=== PATIENT | female | born 1980 | race Caucasian/White ===

== ENCOUNTER → 2019-07-09 13:42 | Outpatient (BNVA) | payer OTHER, SELFPAY | PROVIDERS: Family Provider Nurse Practitioner Family; PCP Nurse Practitioner Family; Referring Provider Family Medicine; Visit Provider Family Medicine | DX: J11.1 Influenza due to unidentified influenza virus with other respiratory manifestations (principal); J32.0 Chronic maxillary sinusitis; J01.00 Acute maxillary sinusitis, unspecified | CPT/HCPCS: 87804 ==

== ENCOUNTER → 2019-11-25 18:27 | Outpatient (BNVA) | payer OTHER, SELFPAY | PROVIDERS: Family Provider Nurse Practitioner Family; PCP Nurse Practitioner Family; Visit Provider Nurse Practitioner | DX: J02.9 Acute pharyngitis, unspecified (principal); J01.90 Acute sinusitis, unspecified | CPT/HCPCS: 87071; 87880 ==

== ENCOUNTER → 2020-03-16 11:31 | Outpatient (BNVA) | payer OTHER, SELFPAY | PROVIDERS: Family Provider Nurse Practitioner Family; PCP Nurse Practitioner Family; Visit Provider Nurse Practitioner Family | DX: Z11.59 Encounter for screening for other viral diseases (principal); J06.9 Acute upper respiratory infection, unspecified | CPT/HCPCS: 87635 ==

== ENCOUNTER 2022-04-05 07:41 | Outpatient (CLI) | payer SELFPAY ==
[2022-04-05] VITALS (18 sets, daily range): BP systolic 105–131; BP diastolic 61–78; PULSE 70–91; RESP 15–18; TEMP 36.5–37.2; O2SAT 100; BMI 26.4
--- NOTE | 2022-04-05 08:09 | XR_ITS ---
WS: [id number] Cervical spine, 3 views, 04/05/2022 Clinical Data: L arm radicular symptoms Comparison: None. Findings: No compression fractures are seen. The disc heights are normal. There is no prevertebral so ft tissue swelling. The odontoid is unremarkable. The soft tissues of the neck and the lung apices ar e normal. XR/XR cervical spine 3V* 01418 Impression: Negative cervical spine.
--- NOTE | 2022-04-05 08:13 | CT_ITS ---
WS: [id number] CT HEAD NONCONTRAST HISTORY: L sided weakness/numbness TECHNIQUE: Contiguous axial imaging performed through the brain in 2.5 mm imaging. Bone and soft tiss ue windows. Sagittal and coronal reformats reviewed. All CT scans at [facility] use at least one of these dose optimization techniques: automated exposure control; mA and/or kV adjustment per pa tient size (includes targeted exams where dose is matched to clinical indication); or iterative recon struction. DLP: 1061.53 mGy.cm COMPARISON: 12/05/2010 No acute intracranial hemorrhage, midline shift or mass effect. No atrophy or prior infarcts or herniation. Ventricles: Normal size with no hydrocephalus. Low-lying cerebellar tonsils. No Chiari malformation. Fourth ventricle is normal size. No hydrocephal us. Paranasal sinuses: As visualized are clear. Mastoid air cells: Well pneumatized. Calvarium and scalp: Skull is intact with no soft tissue edema or swelling. CT/CT head wo con* [id number] IMPRESSION: 1. No acute intracranial hemorrhage, midline shift or mass effect. 2. No hydrocephalus. 3. Low-lying cerebellar tonsils. No Chiari malformation.
[2022-04-05 08:21] LABS: Basophils # 0.1 10^3/uL (0.0-0.1); Basophils % 1.2 %; Eosinophils # 0.4 10^3/uL (0.0-0.8); Eosinophils % 6.3 %; Hematocrit 26.4 % (37.0-47.0); Hemoglobin 6.9 g/dL (11.5-15.3); Lymphocytes # 1.7 10^3/uL (0.8-4.8); Lymphocytes % 29.1 %; Mean Corpuscular HGB Conc 26.1 g/dL (30.0-36.0); Mean Corpuscular Volume 65.2 fl (81-99); Mean Platelet Volume 9.2 fL (7.4-10.4); Monocytes # 0.5 10^3/uL (0.2-0.9); Monocytes % 8.2 %; Neutrophils # 3.16 10^3/uL (1.8-7.7); Nucleated Red Blood Cells % 0 %; Platelet Count 667 10^3/cmm (130-400); Red Blood Count 4.05 10^6/uL (4.1-5.3); Red Cell Distribution Width 19.6 % (12.1-15.1); White Blood Count 5.7 10^3/uL (4.0-10.0)
--- NOTE | 2022-04-05 08:25 | ECG_ITS ---
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 Measurements Intervals Loman Rate: 85 P: 62 SC: 148 QRS: 71 QRSD: 84 T: 62 QT: 369 QTc: 439 Interpretive Statements SINUS RHYTHM No previous ECG available for comparison Electronically Signed On 04-06-2022 11:38:30 SECURITY ARCHITECT by Jennifer Kumar M.D. [id number]
--- NOTE | 2022-04-05 08:34 | ED_ITS ---
HPI - Neuro Symptoms/Deficit General: Chief Complaint: Neuro Symptoms/Deficit Stated Complaint: stroke like Symtoms Time Seen by Provider: 04/05/22 07:45 Source: patient Mode of arrival: ambulatory History of Present Illness: 41-year-old female presents emergency room with complaints of left-sided weakness and numbness she had an episode yesterday then it resolved spontaneously after an hour or so she went to bed last night around 9 or 10:00 woke up this morning and had similar symptoms again on the left side these are persisting she has no difficulty with gait swallowing speech or vision. Her NIH score is 1. Associated symptoms: Deny chest pain, malaise, nausea or vomiting Review of Systems Const: Denies: fever(s), chills, body aches, change in appetite, fatigue or malaise ENMT: Denies: throat pain, ear or mastoid pain, nasal discharge or nasal congestion Card: Denies: chest pain, palpitations, irregular heart rhythm, edema, dyspnea on exertion or orthopnea Resp: Denies: dyspnea, productive cough or non-productive cough GI: Denies: abdominal pain, nausea, vomiting, hematemesis, coffee ground emesis, diarrhea, constipation, bloating, hematochezia or melena : Denies: flank pain, difficulty voiding, dysuria, urinary frequency or urinary urgency Skin/Breast: Denies: rash or pruritus [facility] ED PFSH: Medical History (Updated 04/05/22 @ 13:04 by Crow Perdomo DO) No significant past medical history Surgical History (Updated 04/05/22 @ 08:39 by Crow Perdomo DO) No pertinent past surgical history Social History Smoking and tobacco status: current every day smoker Alcohol intake: never Female Reproductive History: Date of last menstrual period: 04/02/22 NIH stroke score NIHSS: Level Of Consciousness - 1a: 0 Level Of Consciousness Questions - 1b: Both Correct Level Of Consciousness Commands - 1c: Both Correct Best Gaze - 2: Normal Visual Goddard - 3: No Visual Loss Facial Palsy - 4: Normal Motor Arm Right - 5: No Drift Motor Arm Left - 5: No Drift Motor Leg Right - 6: No Drift Motor Leg Left - 6: No Drift Limb Ataxia - 7: Absent Sensory - 8: Mild To Moderate Loss Best Language - 9: No Aphasia Dysarthia - 10: Normal Extinction And Inattention - 11: 0 Score: Total Score: 1 Physical Exam Const: GENERAL APPEARANCE: cooperative and comfortable ORIENTATION/CONSCIOUSNESS: Yes awake, Yes oriented to person, Yes oriented to place and Yes oriented to time HENMT: COMMON NORMALS: normocephalic, atraumatic and hearing grossly normal bilaterally HEAD & SCALP: normocephalic and atraumatic Resp: COMMON NORMALS: normal respiratory effort, No retractions, No use of accessory muscles and clear to auscultation bilaterally AUSCULTATION: clear to auscultation bilaterally Cardio: COMMON NORMALS: regular rate, regular rhythm and No murmurs present (Cardio) RATE: regular rate RHYTHM: regular rhythm GI: COMMON NORMALS: Soft to palpation and No hepatosplenomegaly present AUSCULTATION: Yes normoactive bowel sounds PALPATION: Yes Soft to palpation, No Tenderness to palpation present (GI), No Guarding due to palpation present (GI) and Yes No hepatosplenomegaly present Extremity: COMMON NORMALS: normal to inspection, capillary refill normal, no clubbing, cyanosis or edema, no calf tenderness and no pedal edema Neuro: SENSORIUM/ORIENTATION: Yes oriented to person, Yes oriented to place and Yes oriented to time Skin: COMMON NORMALS: no rashes or lesions noted GENERAL SKIN EXAM: no rashes or lesions noted Course Vital Signs: Vital signs: Vital Signs Temperature 97.7 F 04/05/22 07:51 Pulse Rate 79 04/05/22 11:57 Respiratory Rate 15 04/05/22 08:21 Blood Pressure 115/69 04/05/22 11:57 Pulse Oximetry 100 04/05/22 11:57 Oxygen Delivery Me thod 04/05/22 11:57 MDM - Neuro Symptoms/Deficit Medical Decision Making No focal neurologic deficits suggestive of acute CVA. I think she is symptomatic from her severe anemia. This is been a chronic thing for her her MCV is extremely low at 65. We will place an outpatient in a bed transfused 2 units and make arrangements for her to follow-up with gynecology. She has been having menorrhagia for some time may need to have further evaluation and possible intervention. Medical Records I reviewed the patient's medical records. Lab Data I reviewed the patient's lab results. : 04/05/22 08:15 04/05/22 08:15 Radiology Impressions Cervical Spine X-Ray 04/05/22 08:09 Impression: Negative cervical spine. Head CT 04/05/22 08:13 IMPRESSION: 1. No acute intracranial hemorrhage, midline shift or mass effect. 2. No hydrocephalus. 3. Low-lying cerebellar tonsils. No Chiari malformation. Laboratory Results WBC 5.7 10^3/uL (4.0-10.0) 04/05/22 08:15 RBC 4.05 10^6/uL (4.1-5.3) L 04/05/22 08:15 Hgb 6.9 g/dL (11.5-15.3) L 04/05/22 08:15 Hct 26.4 % (37.0-47.0) L 04/05/22 08:15 MCV 65.2 fl (81-99) L 04/05/22 08:15 MCH 17.0 pg (28.0-34.0) L 04/05/22 08:15 MCHC 26.1 g/dL (30.0-36.0) L 04/05/22 08:15 RDW 19.6 % (12.1-15.1) H 04/05/22 08:15 Plt Count 667 10^3/cmm (130-400) H 04/05/22 08:15 MPV 9.2 fL (7.4-10.4) 04/05/22 08:15 Neut % (Auto) 55.0 % 04/05/22 08:15 Lymph % (Auto) 29.1 % 04/05/22 08:15 [place] % (Auto) 8.2 % 04/05/22 08:15 Eos % (Auto) 6.3 % 04/05/22 08:15 Baso % (Auto) 1.2 % 04/05/22 08:15 Neut # (Auto) 3.16 10^3/uL (1.8-7.7) 04/05/22 08:15 Lymph # (Auto) 1.7 10^3/uL (0.8-4.8) 04/05/22 08:15 [place] # (Auto) 0.5 10^3/uL (0.2-0.9) 04/05/22 08:15 Eos # (Auto) 0.4 10^3/uL (0.0-0.8) 04/05/22 08:15 Baso # (Auto) 0.1 10^3/uL (0.0-0.1) 04/05/22 08:15 Nucleated RBC % (auto) 0 % 04/05/22 08:15 Nucleated RBCs # 0.0 /100WBC 04/05/22 08:15 Sodium 140 mmol/L (136-145) 04/05/22 08:15 Potassium 3.9 mmol/L (3.5-5.1) 04/05/22 08:15 Chloride 105 mmol/L (98-107) 04/05/22 08:15 Carbon Dioxide 22 mmol/L (22-29) 04/05/22 08:15 Anion Gap 16.9 (5-19) 04/05/22 08:15 BUN 9 mg/dL (6-20) 04/05/22 08:15 Creatinine 0.4 mg/dL (0.5-0.9) L 04/05/22 08:15 GFR Calculation 175.0 mL/min (90-130) H 04/05/22 08:15 Glucose 85 mg/dL (65-115) 04/05/22 08:15 Calculated Osmolality 288 mOsm/kg (285-295) 04/05/22 08:15 Calcium 9.4 mg/dL (8.5-10.5) 04/05/22 08:15 Total Bilirubin 0.2 mg/dL (0.15-1.2) 04/05/22 08:15 AST 14 U/L (0-32) 04/05/22 08:15 ALT 12 U/L (0-33) 04/05/22 08:15 Alkaline Phosphatase 53 U/L (35-105) 04/05/22 08:15 Total Protein 7.0 g/dL (6.6-8.7) 04/05/22 08:15 Albumin 4.2 g/dL (3.5-5.2) 04/05/22 08:15 Globulin 2.8 g/dL (1.3-4.6) 04/05/22 08:15 Blood Type O Positive 04/05/22 10:44 Rho(D) Type Positive 04/05/22 10:44 Antibody Screen Negative 04/05/22 10:44 Crossmatch See Detail 04/05/22 10:44 Discharge Plan Discharge Patient Disposition: Admitted As Inpatient Admit Provider: Andry Ivan Clinical Impression: Anemia, Menorrhagia Condition: Stable Coding Level of Care Code 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
[2022-04-05 08:44] LABS: Alanine Aminotransferase 12 U/L (0-33); Albumin Level 4.2 g/dL (3.5-5.2); Alkaline Phosphatase 53 U/L (35-105); Anion Gap 16.9 (5-19); Aspartate Amino Transferase 14 U/L (0-32); Blood Urea Nitrogen 9 mg/dL (6-20); Calcium 9.4 mg/dL (8.5-10.5); Carbon Dioxide 22 mmol/L (22-29); Chloride 105 mmol/L (98-107); Globulin 2.8 g/dL (1.3-4.6); Glucose 85 mg/dL (65-115); Osmolality Calculated 288 mOsm/kg (285-295); Potassium 3.9 mmol/L (3.5-5.1); Sodium 140 mmol/L (136-145); Total Bilirubin 0.2 mg/dL (0.15-1.2)
--- NOTE | 2022-04-05 21:01 | PC.NURSE ---
pt left unit @2034
== END 2022-04-05 20:35 | disposition home or self-care (01) ==
LOC: ER 10:49 → OBGYN 13:03 → OPOB 04-06 06:18
PROVIDERS: Emergency Provider Family Medicine; PCP Nurse Practitioner Family; Visit Provider Internal Medicine
DX: O99.019 Anemia complicating pregnancy, unspecified trimester (principal); Z3A.00 Weeks of gestation of pregnancy not specified
CPT/HCPCS: 36415; 36430; 70450; 72040; 80053; 85025; 86850; 86900; 86920; 93005; G0378; P9016

== ENCOUNTER → 2022-04-07 14:15 | Outpatient (BNVA) | payer SELFPAY | PROVIDERS: PCP Nurse Practitioner Family; Visit Provider Obstetrics & Gynecology | DX: N93.9 Abnormal uterine and vaginal bleeding, unspecified (principal); N92.0 Excessive and frequent menstruation with regular cycle | CPT/HCPCS: 84443; 88305 ==

== ENCOUNTER → 2022-04-26 13:45 | Outpatient (BNVA) | payer SELFPAY | PROVIDERS: PCP Nurse Practitioner Family; Visit Provider Obstetrics & Gynecology | DX: D64.9 Anemia, unspecified (principal); N92.0 Excessive and frequent menstruation with regular cycle | CPT/HCPCS: 85025 ==

== ENCOUNTER → 2022-05-02 10:21 | Outpatient (BNVA) | payer OTHER, SELFPAY | PROVIDERS: PCP Nurse Practitioner Family; Visit Provider Obstetrics & Gynecology | DX: N92.0 Excessive and frequent menstruation with regular cycle (principal); D25.0 Submucous leiomyoma of uterus | CPT/HCPCS: 76830 ==

== ENCOUNTER → 2022-05-04 09:00 | Outpatient (BNVA) | payer OTHER, SELFPAY | PROVIDERS: PCP Nurse Practitioner Family; Visit Provider Obstetrics & Gynecology | DX: N92.0 Excessive and frequent menstruation with regular cycle (principal) | CPT/HCPCS: 87624 ==

== ENCOUNTER → 2022-07-04 06:00 | Day surgery (SDC) | payer OTHER, SELFPAY ==
[2022-06-29 10:04] VITALS: BMI 27.3
[2022-06-29 10:30] LABS: Basophils # 0.1 10^3/uL (0.0-0.1); Basophils % 1.1 %; Eosinophils # 0.3 10^3/uL (0.0-0.8); Eosinophils % 5.3 %; Hematocrit 40.8 % (37.0-47.0); Hemoglobin 12.5 g/dL (11.5-15.3); Lymphocytes # 1.6 10^3/uL (0.8-4.8); Lymphocytes % 25.1 %; Mean Corpuscular HGB Conc 30.6 g/dL (30.0-36.0); Mean Platelet Volume 9.1 fL (7.4-10.4); Monocytes # 0.5 10^3/uL (0.2-0.9); Monocytes % 7.4 %; Neutrophils # 3.79 10^3/uL (1.8-7.7); Neutrophils % 60.9 %; Nucleated Red Blood Cells % 0 %; Platelet Count 493 10^3/cmm (130-400); White Blood Count 6.2 10^3/uL (4.0-10.0)
[2022-06-29 10:56] LABS: Blood Urea Nitrogen 9 mg/dL (6-20); Calcium 9.5 mg/dL (8.5-10.5); Carbon Dioxide 25 mmol/L (22-29); Chloride 103 mmol/L (98-107); Glomerular Filtration Rate 135.3 mL/min (90-130); Glucose 90 mg/dL (65-115); Osmolality Calculated 282 mOsm/kg (285-295); Sodium 137 mmol/L (136-145)
--- NOTE | 2022-06-29 14:14 | P.ANESASSM_ITS ---
Pre-Anesthetic Assessment Height/Weight: Height 1.52 m Weight 63.503 kg Preop Diagnosis: Menorrhagia Operation Date: 07/04/22 07:00 Proposed Procedures p Laparoscopic assisted vaginal hysterectomy, bilateral salpingectomy 13826 N93.9,D64.9(Not Applicable) - Tiff Mace MD s Laparoscopic Salpingectomy(Bilateral) - Tiff Mace MD Familial anesthetic complications: none Was Beta Anirudh taken within 24 hours: N/A Was Clonidine taken within 24 hours: N/A Social Tobacco and No alcohol Exam alert, oriented x 3 and regular rate & rhythm Airway Submandibular: within normal limits Cervical ROM: within normal limits Mallampati: Class II Dentition: full Pulmonary Chronic Obstructive Pulmonary Disease CV/HEM Anemia Anesthetic Plan ASA status: 2 Anesthesia: General Medications/Allergies Home Medications Medication Instructions Recorded Confirmed Last Taken Type acetaminophen 500 mg tablet 1,000 mg PO BEDTIME 04/05/22 06/29/22 06/28/22 History calcium carbonate 200 mg calcium 200 mg PO TID PRN Heartburn 04/05/22 06/29/22 04/04/22 History (500 mg) chewable tablet (Tums) multivitamin 1 tab PO DAILY 06/29/22 06/29/22 06/28/22 History Allergies Allergy/AdvReac Type Severity Reaction Status Date / Time No Known Allergies Allergy Verified 06/29/22 10:02 [facility] Anesthesia Medical History No significant past medical history Surgical History No pertinent past surgical history Family History Grandmother Diabetes Hypertension Mother Hypertension Father Hypertension Denies family history of Colon cancer Ovarian cancer Heart disease Hyperlipidemia Breast cancer Family history of thyroid problem Uterine cancer Stroke Social History Smoking and tobacco status: current every day smoker Alcohol intake: never Female Reproductive History Date of last menstrual period: 04/02/22 Data Anesthesia 06/29/22 10:13 06/29/22 10:13 Short CBC 06/29/22 Range/Units 10:13 WBC 6.2 (4.0-10.0) 10^3/uL Hgb 12.5 (11.5-15.3) g/dL Hct 40.8 (37.0-47.0) % MCV 85.0 (81-99) fl Plt Count 493 H (130-400) 10^3/cmm Neut % (Auto) 60.9 % Neut # (Auto) 3.79 (1.8-7.7) 10^3/uL [facility] 06/29/22 10:13 Sodium 137 Potassium 4.0 Chloride 103 Carbon Dioxide 25 BUN 9 Creatinine 0.5 Glucose 90 Calcium 9.5 Cardiac Studies: No Data to Display
== END ==
PROVIDERS: Visit Provider Obstetrics & Gynecology
DX: N93.9 Abnormal uterine and vaginal bleeding, unspecified (principal); Z01.818 Encounter for other preprocedural examination
CPT/HCPCS: 80048; 85025; J1100; J1170; J1200; J2250; J2370; J2405; J2704; J2710; J3010; J3490

== ENCOUNTER 2022-07-26 09:32 | Observation (INO) | payer OTHER, SELFPAY ==
[2022-07-24 12:42] VITALS: BMI 26.4
--- NOTE | 2022-07-24 16:18 | P.ANESUD_ITS ---
Pre-Anesthetic Update Pre-Anesthetic Assessment: Date of Surgery/Procedure: 07/24/22 Preop Fay gnosis: Menorrhagia Proposed Procedure: Operation Date: 07/26/22 07:00 Proposed Procedures p Laparoscopic assisted vaginal hysterectomy, bilateral salpingectomy 09187,N93.9,D64.9(Not Applicable) - Tiff Mace MD s Salpingectomy(Bilateral) - Tiff Mace MD Any changes to Pre-Anesthetic Assessment?: No Labs Last 48hrs: Blood Bank 07/24/22 12:55 Blood Type O Positive Rho(D) Type Positive Antibody Screen Not Reportable Exam: Pre-Anes Outpt Exam: alert, oriented x 3, clear to auscultation bilaterally and regular rate & rhythm Cardiac Studies: No Data to Display
[2022-07-26] VITALS (13 sets, daily range): BP systolic 92–127; BP diastolic 54–72; PULSE 61–77; RESP 14–18; TEMP 36.1–36.8; O2SAT 96–100
[2022-07-26] MEDS: acetaminophen 1,000 MG/100 ML PIGGYBACK 400 MG IV (06:08)
[2022-07-26] MEDS: sodium chloride 0.9% 1,000 ML 30 ML IV (06:09)
[2022-07-26] MEDS: CELEcoxib 200 mg Capsule 400 MG PO (06:09)
[2022-07-26] MEDS: phenazopyridine 100 mg Tablet 200 MG PO ×3 (06:09→20:13)
[2022-07-26] MEDS: gabapentin 300 mg Capsule PO (06:09)
[2022-07-26] MEDS: scopolamine 1.5 Patch 1 PATCH TRANSDERMA (06:10)
--- NOTE | 2022-07-26 07:00 | W.PM.OPSUD ---
Surgery/Procedure H&P Update DATE OF PROCEDURE: July 26, 2022 DATE H&P PERFORMED: 06/29/22 H&P UPDATE INFORMATION: I have reviewed H&P completed within last 30 days, I have examined patient prior to procedure and No changes to prior documentation PREOP DIAGNOSIS: Menorrhagia PLANNED PROCEDURE: Operation Date: 07/26/22 07:00 Proposed Procedures p Laparoscopic assisted vaginal hysterectomy, bilateral salpingectomy 19378,N93.9,D64.9(Not Applicable) - Tiff Mace MD s Salpingectomy(Bilateral) - Tiff Mace MD Related Problem List Diagnoses (1) Anemia: (2) Menorrhagia:
[2022-07-26] MEDS: ceFAZolin 2,000 MG in sodium chloride 0.9% (plus) 50 ML 100 MG IV ×3 (07:06→23:55)
[2022-07-26 07:21] LABS: OR HCG Qualitative Urine Negative (Negative)
[2022-07-26] MEDS: vasopressin 20 unit/mL INJ INJECTION (07:56)
--- NOTE | 2022-07-26 09:03 | PM.OP ---
Operative Report Date of procedure: July 26, 2022 Pre-op diagnosis: Preop Diagnosis Menorrhagia Post-op diagnosis: same Post-op findings: fibroid, enlarged uterus Procedure done: LAVH, bilateral salpingectomy Specimens removed/disposition: uterus and bilateral fallopian tubes to pathology Surgeon: Tiff Mace Anesthesia: General Estimated blood loss (mL): 250 IV fluids (mL): 1,800 Urine output (mL): 400 Complications: none Findings: enlarged, fibroid uterus, normal appearing tubes and ovaries Condition: stable Disposition: PACU Procedure: The patient was taken to the operating room where general anesthesia was administered and found to be adequate. She was prepped and draped in the normal sterile fashion in the dorsal lithotomy position in [facility]. A Nance catheter was placed. A weighted speculum was placed into the vagina and the anterior lip of the cervix was grasped with a single tooth tenaculum. The Zumi uterine manipulator was placed. The weighted speculum was removed. The gloves were changed and attention was turned to the abdomen. A 5 mm supraumbilical incision was made. Using a 5 mm port with the camera, the port was placed into the abdomen. The abdomen was insufflated. Two low, lateral 5 mm ports were placed on the left and right under direct visualization from the camera. The right tube was grasped and elevated. Using the laparoscopic cautery, the mesosalpinx was divided between the ovary and tube. The tube was removed. This was performed the same way on the left. The uteroovarian ligaments as well as the round ligaments were ligated. Attention was then turned to the vaginal portion of the procedure. The weighted speculum was placed into the vagina. The zumi manipulator was removed. The single tooth tenaculum was removed and replaced with the yeni's tenaculum. 10 mL of dilute Pitressin was injected at the vesicovaginal junction. A circumferential incision was made at the vesicovaginal junction and the vaginal mucosa reflected cephalad. The posterior peritoneum was entered sharply with the Metzenbaum scissors and the long weighted speculum replaced. Using the Karina clamps the uterosacral ligaments were clamped cut and suture-ligated. The anterior peritoneum was entered sharply with the metzenbaum scissors. Then sequentially the uterine arteries and cardinal ligaments were clamped cut and suture-ligated. A single-tooth tenaculum was used to deliver the uterus. The remaining segement of the utero-ovarian ligaments were clamped cut and suture-ligated bilaterally and the specimen was removed. There was good hemostasis with only mild bleeding from the cuff. The peritoneum was closed with a pursestring using 2-0 Vicryl. The vaginal cuff was closed with 0 Vicryl in a running locked pattern incorporating the uterosacral ligaments into the lateral aspects of the vaginal cuff. The Nance catheter was removed and the cystoscope advanced into the bladder. The patient was given pyridium and bilateral spill was noted. There were no injuries or deficits noted in the bladder. The cystoscope was removed and the Nance was replaced. Vaginal packing was placed for good hemostasis. The gloves and gowns were changed and attention was turned to the abdomen. The ports were closed with 2-0 monocryl with skin glue. The patient tolerated the procedure well. Sponge lap and needle counts were correct x3. She was taken to the recovery room in stable condition.
--- NOTE | 2022-07-26 09:29 | P.ANESUD_ITS ---
Pre-Anesthetic Update Pre-Anesthetic Assessment: Date of Surgery/Procedure: 07/26/22 Preop Fay gnosis: Menorrhagia Proposed Procedure: Operation Date: 07/26/22 07:00 Proposed Procedures p Laparoscopic assisted vaginal hysterectomy, bilateral salpingectomy 57810,N93.9,D64.9(Not Applicable) - Tiff Mace MD s Salpingectomy(Bilateral) - Tiff Mace MD Any changes to Pre-Anesthetic Assessment?: No Last Intake: Intake Last Liquid Date 07/25/22 Last Liquid Time 23:00 Last Solid Date 07/25/22 Last Solid Time 21:30 Labs Last 48hrs: Blood Bank 07/24/22 12:55 Blood Type O Positive Rho(D) Type Positive Antibody Screen Not Reportable Vitals: Temperature 97 F L 07/26/22 09:22 Temperature Source Temporal Artery S can 07/26/22 06:00 Pulse Rate 69 07/26/22 09:22 Respiratory Rate 18 07/26/22 09:22 Blood Pressure 103/72 07/26/22 09:22 Blood Pressure Alethea n 82 07/26/22 09:22 Pulse Oximetry 100 07/26/22 09:22 Oxygen Delivery Me thod 07/26/22 09:22 Oxygen Flow Rate 3 07/26/22 09:22 Exam: Pre-Anes Outpt Exam: alert, oriented x 3, clear to auscultation bilaterally and regular rate & rhythm Cardiac Studies: No Data to Display
[2022-07-26] MEDS: ketorolac 30 mg/mL INJ IVP ×3 (10:18→21:19)
[2022-07-26] MEDS: dextrose 5%-lactated ringers 1,000 ML 125 ML IV ×2 (10:33→20:05)
[2022-07-26] MEDS: ondansetron 2 mg/ML SDV 2 mL 4 MG IVP (10:33)
[2022-07-26] MEDS: acetaminophen 325 mg Tablet 650 MG PO ×2 (14:03→20:13)
--- NOTE | 2022-07-26 15:28 | ANE.PACU2 ---
Inpatient post-anesthesia follow up: Airway intact: Yes Vital signs: Temperature 97 F Pulse Rate 71 Respiratory Rate 18 Blood Pressure 94/58 Pulse Oximetry 100 Oxygen Delivery Me thod Room Air Oxygen Flow Rate 3 Fraction of Inspir ed Oxygen Hydration adequate: Yes Nausea and vomiting: No Pain level: 4 Mental status: Baseline
[2022-07-26] MEDS: docusate sodium 100 mg Capsule PO (18:10)
[2022-07-27] MEDS: ketorolac 30 mg/mL INJ IVP (03:42)
[2022-07-27 04:50] VITALS: BP 114/57; PULSE 59; RESP 16; TEMP 36.8; O2SAT 98
[2022-07-27 05:23] LABS: Hemoglobin 10.2 g/dL (11.5-15.3); Mean Corpuscular HGB Conc 30.9 g/dL (30.0-36.0); Mean Corpuscular Hemoglobin 27.3 pg (28.0-34.0); Mean Corpuscular Volume 88.5 fl (81-99); Mean Platelet Volume 9.4 fL (7.4-10.4); Platelet Count 330 10^3/cmm (130-400); Red Blood Count 3.73 10^6/uL (4.1-5.3); Red Cell Distribution Width 14.3 % (12.1-15.1); White Blood Count 10.7 10^3/uL (4.0-10.0)
[2022-07-27] MEDS: acetaminophen 325 mg Tablet 650 MG PO (09:01)
[2022-07-27] MEDS: docusate sodium 100 mg Capsule PO (09:02)
--- NOTE | 2022-07-27 09:14 | PM.DCS ---
Discharge Providers Date of Admission: 07/26/22 09:32 Date of Discharge: July 27, 2022 Attending Provider at Admission: Tiff Mace MD Attending Provider at Discharge: Tiff Mace MD Diagnoses at Discharge Discharge Diagnosis (1) Anemia: Status: Acute (2) Menorrhagia: Status: Acute Reason for Visit Reason for Visit: N93.9, D64.9 Hospital Course Hospital Course The patient was admitted for surgery. She did well postoperatively and was ready for discharge on day #1 Physical Exam Narrative: The patient is doing well this morning. She is tolerating a regular diet. She has been ambulating and pain is well controlled. Const: COMMON NORMALS: no acute distress, average body habitus, patient oriented x3, no limitations, healthy appearing, alert and well nourished GENERAL APPEARANCE: cooperative, comfortable, well kempt and well developed ORIENTATION/CONSCIOUSNESS: Yes awake, Yes oriented to person, Yes oriented to place and Yes oriented to time Resp: COMMON NORMALS: normal respiratory effort EFFORT & INSPECTION: Yes able to speak in complete sentences GI: COMMON NORMALS: Soft to palpation and non-tender PALPATION: Yes Soft to palpation Extremity: COMMON NORMALS: no calf tenderness Neuro: COMMON NORMALS: patient oriented x3 SENSORIUM/ORIENTATION: Yes alert, Yes oriented to person, Yes oriented to place and Yes oriented to time Psych: COMMON NORMALS: mental status grossly normal, Normal thought process present, cooperative, normal affect and speech normal APPEARANCE: Yes well kempt SPEECH: Yes normal speech THOUGHT PROCESS: Normal thought process present Urinary Catheter Management: Nance: Cath Placed During This Visit: yes, but has since been removed by the nurse Reason for Continuing Indwelling Catheter: Decision to DC Catheter Urinary Catheter Date of Insertion: 07/26/22 Urinary Catheter Time of Insertion: 07:47 Date Urinary Catheter Removed: 07/27/22 Time Urinary Catheter Discontinued: 05:20 Discharge Data Studies Completed and Pending Pending at discharge Category Date Time Status ES surgery / GI images Routine Exams 07/26/22 08:44 Ordered Urine Culture Routine Lab 07/26/22 07:39 Received Pathology: Surgical [PTH] Routine Pth 07/26/22 08:44 Received Laboratory Results WBC 10.7 10^3/uL (4.0-10.0) H 07/27/22 05:15 RBC 3.73 10^6/uL (4.1-5.3) L 07/27/22 05:15 Hgb 10.2 g/dL (11.5-15.3) L 07/27/22 05:15 Hct 33.0 % (37.0-47.0) L 07/27/22 05:15 MCV 88.5 fl (81-99) 07/27/22 05:15 MCH 27.3 pg (28.0-34.0) L 07/27/22 05:15 MCHC 30.9 g/dL (30.0-36.0) 07/27/22 05:15 RDW 14.3 % (12.1-15.1) 07/27/22 05:15 Plt Count 330 10^3/cmm (130-400) 07/27/22 05:15 MPV 9.4 fL (7.4-10.4) 07/27/22 05:15 Urine HCG, Qual Negative (Negative) 07/26/22 05:55 Blood Type O Positive 07/24/22 12:55 Rho(D) Type Positive 07/24/22 12:55 Antibody Screen Not Reportable 07/24/22 12:55 PEG Antibody Screen Negative 07/24/22 12:55 Vitals Last Vital Signs Temp 98.2 F 07/27/22 04:50 Pulse 59 L 07/27/22 04:50 Resp 16 07/27/22 04:50 BP 114/57 07/27/22 04:50 Pulse Ox 98 07/27/22 04:50 O2 Del Method 07/27/22 04:50 O2 Flow Rate 3 07/26/22 09:27 Discharge Plan Discharge Patient Disposition: Home Condition: Stable Prescriptions: New docusate sodium 100 mg Capsule 100 mg PO BID Qty: 60 0RF ibuprofen 800 mg Tablet 800 mg PO Q8H Qty: 30 0RF Continued multivitamin Tablet 1 tab PO DAILY acetaminophen 500 mg Tablet 1,000 mg PO BEDTIME calcium carbonate [Tums] 200 mg calcium (500 mg) Tablet,Chewable 200 mg PO TID PRN (Reason: Heartburn) Discharge Orders: Discharge Order (Routine); Ordered 07/27/22 Ordered By: Tiff Mace Referrals: Tiff Mace MD [Physician] - (You will need to see Dr. Mace in 2 weeks and 6 weeks. The clinic should be calling you in a few days with the appointment dates and time. If you have not heard from the clinic in a couple days, call the clinic and schedule the appointments.) Patient Instructions: Ibuprofen (By mouth), Laxative, Stool Softeners (By mouth), Salpingectomy (GEN), Laparoscopic Hysterectomy (GEN), Vaginal Hysterectomy (GEN), OB Abdominal Surgery - [facility], OB Discharge Report, OB Food/Drug Interaction Guide, Opioid Safety Discharge Attestations Time Spent in Discharge Care*: less than 30 min Quality Metrics Clinical Quality Measures [ No reported AMI, CVA or VTE this stay] Coding Level of Care Code Acute Code for Chg Fwd Diagnoses Anemia D64.9 Menorrhagia N92.0
[2022-07-27 10:00] VITALS: BP 94/52; PULSE 78; RESP 16; TEMP 36.9; O2SAT 98
== END 2022-07-27 10:15 | disposition home or self-care (01) ==
LOC: OBGYN 09:33
PROVIDERS: Admitting Provider Obstetrics & Gynecology; Visit Provider Obstetrics & Gynecology
PROC: 0UT9FZZ Resection of Uterus, Via Natural or Artificial Opening With Percutaneous Endoscopic Assistance (ICD-10-PCS; CPT 58552; principal; 2022-07-26 07:00)
PROC: (CPT 58700; 2022-07-26 07:00)
PROC: 0TJB8ZZ Inspection of Bladder, Via Natural or Artificial Opening Endoscopic (ICD-10-PCS; CPT 52000; 2022-07-26 07:00)
DX: N92.0 Excessive and frequent menstruation with regular cycle (principal); D64.9 Anemia, unspecified; F17.200 Nicotine dependence, unspecified, uncomplicated; D25.9 Leiomyoma of uterus, unspecified
CPT/HCPCS: 58552; 36415; 81025; 84703; 85027; 86850; 86900; 87086; 88307; 90471; 90686; 96374; 96376; G0378; J0131; J0690; J1885; J2405; J3490; J7030; J7121

== ENCOUNTER 2023-07-01 09:26 | Emergency (ER) | payer SELFPAY ==
[2023-07-01 09:30] VITALS: BP 152/89; PULSE 67; RESP 16; TEMP 36.7; O2SAT 96; BMI 28.3
--- NOTE | 2023-07-01 09:39 | ED_ITS ---
HPI - Dental/Oral General: Chief complaint: Dental/Oral Stated complaint: face swelling and pain Time Seen by Provider: 07/01/23 09:27 Source: patient Mode of arrival: ambulatory Limitations: no limitations History of Present Illness: 42-year-old female stated history of den jeferson issues states she has had a broken tooth in the right lower molar states that over the last 2 days she has had right lower molar pain with swelling to the right lower jaw she denies any difficulty swallowing denies any fever she was seen in urgent care yesterday started on Augmentin but states its worsened. Associated symptoms: Denies fever(s) Review of Systems Const: Denies: fever(s), chills, body aches or change in appetite ENMT: Reports: dental pain; Denies: throat pain Card: Denies: chest pain Resp: Denies: dyspnea GI: Denies: abdominal pain, nausea, vomiting or diarrhea Musc: Denies: neck pain or back pain Skin/Breast: Denies: rash Neuro: Denies: headache(s) PFSH ED PFSH: Medical History Menorrhagia Anemia No significant past medical history Surgical History No pertinent past surgical history Family History Grandmother Diabetes Hypertension Mother Hypertension Father Hypertension Denies family history of Colon cancer Ovarian cancer Heart disease Hyperlipidemia Breast cancer Family history of thyroid problem Uterine cancer Stroke Social History Substance/Drug Use: never Physical Exam Const: COMMON NORMALS: no acute distress, patient oriented x3 and healthy appearing HENMT: COMMON NORMALS: normocephalic and atraumatic HEAD & SCALP: normo cephalic and atraumatic OTHER: Tenderness over right lower molar does have swelling to right lower jaw no obvious abscess no trismus Neck/C-Spine: COMMON NORMALS: full ROM and supple Chest: COMMONS NORMALS: normal inspection of the chest Resp: COMMON NORMALS: normal respiratory effort Cardio: COMMON NORMALS: regular rate, regular rhythm and No murmurs present (Cardio) RATE: regular rate RHYTHM: regular rhythm Extremity: COMMON NORMALS: normal to inspection and full ROM Neuro: COMMON NORMALS: patient oriented x3, moves all extremities and no focal motor deficits Psych: COMMON NORMALS: mental status grossly normal, Normal thought process present and cooperative THOUGHT PROCESS: Normal thought process present Skin: COMMON NORMALS: no rashes or lesions noted and no wounds GENERAL SKIN EXAM: no rashes or lesions noted Procedures Nerve Block Nerve Block 1: Time out performed: Yes Local Anesthetic: bupivacaine 0.5% Amount of anesthesia used (mL): 8 Side: right Intraoral Nerve Block: inferior alveolar Procedure Successful: Yes Patient Tolerated Procedure: well Complications: none Course Vital Signs: Vital signs: Vital Signs Temperature 98.0 F 07/01/23 09:30 Pulse Rate 67 07/01/23 09:30 Respiratory Rate 16 07/01/23 09:30 Blood Pressure 152/89 07/01/23 09:30 Pulse Oximetry 98 07/01/23 09:48 Oxygen Delivery Me thod Room Air 07/01/23 09:48 MDM - Dental/Oral Medical Decision Making Patient presents here with dental pain she does have swelling but no abscess formation at this time no trismus we will add Flagyl to her antibiotics did do a dental block she is to follow-up with dentist return if worsening. Medical Records I reviewed the patient's medical records. No radiology studies performed this visit Discharge Plan Discharge Patient Disposition: Home Clinical Impression: Toothache Condition: Stable Prescriptions: New metronidazole 500 mg tablet 500 mg PO Q8H 7 Days Qty: 21 0RF No Action amoxicillin-pot clavulanate 875-125 mg tablet 1 tab PO BID 10 Days Qty: 20 0RF multivitamin Tablet 1 tab PO DAILY docusate sodium 100 mg Capsule 100 mg PO BID Qty: 60 0RF acetaminophen 500 mg Tablet 1,000 mg PO BEDTIME calcium carbonate [Tums] 200 mg calcium (500 mg) Tablet,Chewable 200 mg PO TID PRN (Reason: Heartburn) Discharge Orders: Discharge ED (Routine); Ordered 07/01/23 Ordered By: Kaden Smalls Discharge Diet: Advance as tolerated Discharge Activity: Resume usual activity Patient Instructions: Toothache (ED) Coding Level of Care Code ED Ergonomics Technician for Glenroy Walton
[2023-07-01 09:48] VITALS: O2SAT 98
[2023-07-01] MEDS: BUPivacaine 0.5% INJ 10 mL INJECTION (09:58)
[2023-07-01] MEDS: cefTRIAXone 1,000 MG in water for injection-sterile 2.1 ML 2 MG IM (09:59)
== END 2023-07-01 10:00 | disposition home or self-care (01) ==
PROVIDERS: Emergency Provider Emergency Medicine
DX: K08.89 Other specified disorders of teeth and supporting structures (principal)
CPT/HCPCS: 64400; 96372; 99284; J0696; J3490

== ENCOUNTER 2023-12-16 13:40 | Emergency (ER) | payer SELFPAY ==
[2023-12-16] VITALS (7 sets, daily range): BP systolic 130–153; BP diastolic 75–98; PULSE 57–72; RESP 15–22; TEMP 36.6; O2SAT 94–100; BMI 28.3
--- NOTE | 2023-12-16 13:50 | ECG_ITS ---
[facility] Test Date: 2023-12-16 Pat Name: Stacy Novak Department: Room: Gender: Female Pediatric Clinical Nurse Specialist: : 1980 Requested By: Brittney Arroyo Order Number: [id number] Siddiqui MD: Lukas Aguilar M.D. Measurements Intervals [place] Rate: 65 P: 52 ME: 136 QRS: 74 QRSD: 86 T: 62 QT: 407 QTc: 426 Interpretive Statements SINUS RHYTHM Compared to ECG 04/05/2022 08:25:00 No significant changes Electronically Signed On 12-16-2023 15:29:03 CDT by Lukas Aguilar M.D. [id number]
--- NOTE | 2023-12-16 14:36 | XRR_ITS ---
PROCEDURE INFORMATION: Exam: XR Chest Exam date and time: 12/16/2023 3:08 PM Age: 43 years old Clinical indication: Pain; Chest pressure; Additional info: Chest pain TECHNIQUE: Imaging protocol: Radiologic exam of the chest. Views: 1 view. COMPARISON: CR XR cervical spine 3V* [id number] 04/05/2022 9:19 AM FINDINGS: Lungs: Unremarkable. No consolidation or mass. Pleural spaces: Unremarkable. No pleural effusion. No pneumothorax. Heart/Mediastinum: Unremarkable. No cardiomegaly. Bones/joints: Unremarkable. XR/XR chest 1V portable [id number] IMPRESSION: No acute findings.
[2023-12-16 14:53] LABS: Basophils # 0.1 10^3/uL (0.0-0.1); Basophils % 1.2 %; Eosinophils # 0.4 10^3/uL (0.0-0.8); Eosinophils % 6.3 %; Hematocrit 43.8 % (36-47); Lymphocytes # 2.1 10^3/uL (0.8-4.8); Lymphocytes % 35.8 %; Mean Corpuscular HGB Conc 32.6 g/dL (30-55); Mean Corpuscular Hemoglobin 29.2 pg (27-33); Mean Corpuscular Volume 89.4 fl (85-98); Mean Platelet Volume 9.1 fL (7.4-10.4); Monocytes # 0.4 10^3/uL (0.2-0.9); Monocytes % 6.1 %; Neutrophils # 2.99 10^3/uL (1.8-7.7); Neutrophils % 50.4 %; Nucleated Red Blood Cells % 0 %; Platelet Count 404 10^3/cmm (157-399); Red Cell Distribution Width 13.4 % (12.1-15.1); White Blood Count 5.92 10^3/uL (3.29-11.43)
[2023-12-16 15:10] LABS: Alanine Aminotransferase 19 U/L (0-33); Albumin Level 4.6 g/dL (3.5-5.2); Alkaline Phosphatase 65 U/L (35-105); Anion Gap 15.4 (5-19); Aspartate Amino Transferase 17 U/L (0-32); Blood Urea Nitrogen 7 mg/dL (6-20); Calcium 9.4 mg/dL (8.5-10.5); Carbon Dioxide 25 mmol/L (22-29); Chloride 104 mmol/L (98-107); Creatinine Clr Calc Pharmacy 121.5124; Globulin 3.1 g/dL (1.3-4.6); Glucose 90 mg/dL (65-115); Osmolality Calculated 288 mOsm/kg (285-295); Potassium 4.4 mmol/L (3.5-5.1); Sodium 140 mmol/L (136-145); Total Bilirubin 0.2 mg/dL (0.15-1.2); Total Protein 7.7 g/dL (6.6-8.7)
[2023-12-16 15:11] LABS: Troponin(5th) Baseline < 6 ng/L (0-10)
--- NOTE | 2023-12-16 15:17 | CTR_ITS ---
PROCEDURE INFORMATION: Exam: CTA Chest With Contrast Exam date and time: 12/16/2023 3:45 PM Age: 43 years old Clinical indication: Pain; Chest pressure; Additional info: Chest pain, elevated ddimer TECHNIQUE: Imaging protocol: Computed tomographic angiography of the chest with contrast. Exam focused on the arteries. 3D rendering (Not supervised by radiologist): MIP and/or 3D reconstructed images were created by the technologist. Radiation optimization: All CT scans at this facility use at least one of these dose optimization techniques: automated exposure control; mA and/or kV adjustment per patient size (includes targeted exams where dose is matched to clinical indication); or iterative reconstruction. Contrast material: OMNIPAQUE 350; Contrast volume: 266.67 ml; Contrast route: INTRAVENOUS (IV); COMPARISON: CR (CHEST, ) 12/16/2023 3:08 PM RADIATION DOSE METRICS: Total DLP (mGy-cm): 266.67 FINDINGS: Pulmonary arteries: Normal. No pulmonary emboli. Aorta: Unremarkable. No aortic aneurysm. No aortic dissection. Lungs: Unremarkable. No consolidation. No masses. Pleural spaces: Unremarkable. No pneumothorax. No pleural effusion. Heart: Unremarkable. No cardiomegaly. No pericardial effusion. Lymph nodes: Unremarkable. No enlarged lymph nodes. Bones/joints: Unremarkable. No acute fracture. Soft tissues: Unremarkable. CT/CT angio chest PE protcl [id number] IMPRESSION: No acute findings.
--- NOTE | 2023-12-16 15:21 | W.ED.CHESTPA ---
HPI - Chest Pain General: Chief Complaint: Chest Pain Stated Complaint: SOB-- Chest pains Time Seen by Provider: 12/16/23 14:33 History of Present Illness: 43-year-old female with no significant past medical history who presents to the emergency room with chest pain. She also says she felt lightheaded over the last 30 minutes. She is been having pain in her upper chest and feeling short of breath since this morning. She said she felt lightheaded and also had some spinning feeling just before arrival here. She still has some chest discomfort. No cardiac history. No lower extremity swelling. No calf pain. No abdominal pain. No nausea or vomiting. Review of Systems Narrative: Constitutional symptoms: Negative except as documented in HPI. Skin symptoms: Negative except as documented in HPI. Eye symptoms: Negative except as documented in HPI. ENMT symptoms: Negative except as documented in HPI. Respiratory symptoms: Negative except as documented in HPI. Cardiovascular symptoms: Negative except as documented in HPI. Gastrointestinal symptoms: Negative except as documented in HPI. Genitourinary symptoms: Negative except as documented in HPI. Musculoskeletal symptoms: Negative except as documented in HPI. Neurologic symptoms: Negative except as documented in HPI. Psychiatric symptoms: Negative except as documented in HPI. Endocrine symptoms: Negative except as documented in HPI. [facility] ED PFSH: Medical History Menorrhagia Anemia No significant past medical history Surgical History No pertinent past surgical history Family History Grandmother Diabetes Hypertension Mother Hypertension Father Hypertension Denies family history of Colon cancer Ovarian cancer Heart disease Hyperlipidemia Breast cancer Family history of thyroid problem Uterine cancer Stroke Social History Substance/Drug Use: never Physical Exam Narrative: EXAM NARRATIVE: General: Alert, no acute distress. Skin: Warm, dry. Head: Normocephalic, atraumatic. Neck: Supple, trachea midline. Eye: Extraocular movements are intact. Ears, nose, mouth and throat: mucosa moist. Cardiovascular: Regular, Normal peripheral perfusion. Respiratory: Lungs are clear to auscultation, respirations are non-labored, breath sounds are equal, Symmetrical chest wall expansion. Gastrointestinal: Soft, Nontender, Non distended Musculoskeletal: Normal ROM, no deformity. Neurological: Alert and oriented, No focal neurological deficit observed. Psychiatric: Cooperative, appropriate mood & affect. Course Vital Signs: Vital signs: Vital Signs Temperature 97.8 F 12/16/23 13:47 Pulse Rate 57 L 12/16/23 15:10 Respiratory Rate 15 12/16/23 15:10 Blood Pressure 149/95 12/16/23 15:25 Pulse Oximetry 99 12/16/23 15:10 Oxygen Delivery Me thod Room Air 12/16/23 13:47 MDM - Chest Pain Medical Decision Making Differential diagnosis for patient with chest pain includes but is not limited to and based on the above HPI, review of systems and physical exam: Pneumonia. unstable angina. angina. Acute coronary syndrome / [place]. Pulmonary embolism. Costochondritis / musculoskeletal. Pleurisy. Pericarditis. Esophageal spasm. Pancreatis. Cholecystitis. Orders placed to evaluate differential diagnosis based on the above differential, HPI and physical exam EKG: Time 1340. Rate 65. Normal sinus rhythm, No ST-T changes, no ectopy, normal ID & QRS intervals, This was reviewed and interpreted by myself the ER physician at 1345. Chest x-ray: No acute process. No infiltrate. No pneumothorax. This was reviewed and interpreted by myself the ER physician. Lab Review: Laboratory results were reviewed and interpreted by myself the emergency room physician. D-dimer was mildly elevated at 0.90 so CTA was ordered. No leukocytosis. No anemia. No renal failure. Liver enzymes are normal. CT of the chest with PE protocol: There is no acute process. This was reviewed and interpreted by myself the emergency room physician. I also reviewed the radiology report. I reviewed the patient's medical record. Reexamination: Patient remained stable. No increased work of breathing. No oxygen requirement. No altered mental status. No focal motor deficits. Assessment and plan: Noncardiac chest pain -IV Ativan and IV Toradol in the emergency room. - Discharged home - Discussed findings and plan with patient. Answered any questions. - All laboratory values were reviewed and interpreted personally by myself, the ER physician - All imaging was reviewed and interpreted personally by myself, the ER physician. - Evaluation and treatment of this problem were appropriate in the emergency setting Lab Data 12/16/23 14:43 12/16/23 14:43 Radiology Impressions Chest X-Ray 12/16/23 14:36 IMPRESSION: No acute findings. Chest CTA 12/16/23 15:17 IMPRESSION: No acute findings. Laboratory Results WBC 5.92 10^3/uL (3.29-11.43) 12/16/23 14:43 RBC 4.90 10^6/uL (3.85-5.65) 12/16/23 14:43 Hgb 14.30 g/dL (11.27-16.99) 12/16/23 14:43 Hct 43.8 % (36-47) 12/16/23 14:43 MCV 89.4 fl (85-98) 12/16/23 14:43 MCH 29.2 pg (27-33) 12/16/23 14:43 MCHC 32.6 g/dL (30-55) 12/16/23 14:43 RDW 13.4 % (12.1-15.1) 12/16/23 14:43 Plt Count 404 10^3/cmm (157-399) H 12/16/23 14:43 MPV 9.1 fL (7.4-10.4) 12/16/23 14:43 Neut % (Auto) 50.4 % 12/16/23 14:43 Lymph % (Auto) 35.8 % 12/16/23 14:43 [place] % (Auto) 6.1 % 12/16/23 14:43 Eos % (Auto) 6.3 % 12/16/23 14:43 Baso % (Auto) 1.2 % 12/16/23 14:43 Neut # (Auto) 2.99 10^3/uL (1.8-7.7) 12/16/23 14:43 Lymph # (Auto) 2.1 10^3/uL (0.8-4.8) 12/16/23 14:43 [place] # (Auto) 0.4 10^3/uL (0.2-0.9) 12/16/23 14:43 Eos # (Auto) 0.4 10^3/uL (0.0-0.8) 12/16/23 14:43 Baso # (Auto) 0.1 10^3/uL (0.0-0.1) 12/16/23 14:43 Nucleated RBC % (auto) 0 % 12/16/23 14:43 Nucleated RBCs # 0.0 /100WBC 12/16/23 14:43 D-Dimer 0.90 ug/mLFEU (0-0.59) H 12/16/23 14:43 Sodium 140 mmol/L (136-145) 12/16/23 14:43 Potassium 4.4 mmol/L (3.5-5.1) 12/16/23 14:43 Chloride 104 mmol/L (98-107) 12/16/23 14:43 Carbon Dioxide 25 mmol/L (22-29) 12/16/23 14:43 Anion Gap 15.4 (5-19) 12/16/23 14:43 BUN 7 mg/dL (6-20) 12/16/23 14:43 Creatinine 0.5 mg/dL (0.5-0.9) 12/16/23 14:43 GFR Calculation 134.0 mL/min (90-130) H 12/16/23 14:43 Glucose 90 mg/dL (65-115) 12/16/23 14:43 Calculated Osmolality 288 mOsm/kg (285-295) 12/16/23 14:43 Calcium 9.4 mg/dL (8.5-10.5) 12/16/23 14:43 Total Bilirubin 0.2 mg/dL (0.15-1.2) 12/16/23 14:43 AST 17 U/L (0-32) 12/16/23 14:43 ALT 19 U/L (0-33) 12/16/23 14:43 Alkaline Phosphatase 65 U/L (35-105) 12/16/23 14:43 Troponin T Baseline < 6 ng/L (0-10) 12/16/23 14:43 C-Reactive Protein 3.0 mg/L (0.0-4.9) 12/16/23 14:43 Total Protein 7.7 g/dL (6.6-8.7) 12/16/23 14:43 Albumin 4.6 g/dL (3.5-5.2) 12/16/23 14:43 Globulin 3.1 g/dL (1.3-4.6) 12/16/23 14:43 Urine Color Yellow (Yellow) 12/16/23 14:30 Urine Appearance Clear (CLEAR) 12/16/23 14:30 Urine pH 7 (5-7) 12/16/23 14:30 Ur Specific [place] 1.005 (1.005-1.030) 12/16/23 14:30 Urine Protein Neg (Negative) 12/16/23 14:30 Urine Glucose (UA) Norm (Normal) 12/16/23 14:30 Urine Ketones Negative (Negative) 12/16/23 14:30 Urine Blood Neg (Negative) 12/16/23 14:30 Urine Nitrate Negative (Negative) 12/16/23 14:30 Urine Bilirubin Neg (Negative) 12/16/23 14:30 Urine Urobilinogen Norm mg/dL (Negative) 12/16/23 14:30 Ur Leukocyte Esterase Negative (Negative) 12/16/23 14:30 Urine RBC None /hpf (0-2) 12/16/23 14:30 Urine WBC None /hpf (0-5) 12/16/23 14:30 Ur Squamous Epith Cells Rare /hpf (0-5) 12/16/23 14:30 Amorphous Sediment Not Reportable 12/16/23 14:30 Urine Bacteria Trace /hpf (NONE) 12/16/23 14:30 All radiology interpretation(s) finalized by discharge Discharge Plan Discharge Patient Disposition: Home Clinical Impression: Chest pain Condition: Stable Prescriptions: No Action amoxicillin-pot clavulanate 875-125 mg tablet 1 tab PO BID 10 Days Qty: 20 0RF multivitamin Tablet 1 tab PO DAILY docusate sodium 100 mg Capsule 100 mg PO BID Qty: 60 0RF acetaminophen 500 mg Tablet 1,000 mg PO BEDTIME calcium carbonate [Tums] 200 mg calcium (500 mg) Tablet,Chewable 200 mg PO TID PRN (Reason: Heartburn) Discharge Orders: Discharge ED (Routine); Ordered 12/16/23 Ordered By: Brittney Mendoza Discharge Diet: Usual diet Discharge Activity: Increase activity as tolerated Patient Instructions: Noncardiac Chest Pain (ED) Activity Restrictions/Additional Instructions: Thank you for choosing [facility] for your healthcare needs today. Please realize this is an emergency room and that we are providing you with a medical screening exam and this may not be complete and all inclusive of all the testing and or work up that you may need to determine your ailment or severity of your illness. You have been screened and evaluated and felt safe for discharge. Health conditions do change or evolve sometimes and as such it is important that you follow up with your Primary Doctor to be re checked, 3-5 days is a general good time frame for follow up. You are always welcome to return to the ED for re assessment if your symptoms are worsening or you have new concerns Coding Level of Care Code ED Associate Drafter for Glenroy Walton
[2023-12-16 15:44] LABS: Add Urine Culture? No; Bacteria Urine TRACE /hpf; Bilirubin Urine Neg (Negative); Blood Urine Neg (Negative); Glucose Urine UA Norm (Normal); Ketones Urine Negative (Negative); Leukocyte Esterase Urine Negative (Negative); Nitrate Urine Negative (Negative); Protein Urine Neg (Negative); Specific Gravity, Urine 1.005 (1.005-1.030); Squamous Epithelial Cell Urine RARE /hpf (0-5); Urine Appearance Clear (CLEAR); Urine Color Yellow (Yellow); Urobilinogen Urine Norm (Negative); pH Urine 7 (5-7)
[2023-12-16] MEDS: iohexol 350 mg/mL 500 mL Btl (per mL) IV (15:45)
[2023-12-16] MEDS: ketorolac 30 mg/mL INJ IVP (16:33)
== END 2023-12-16 16:41 | disposition home or self-care (01) ==
PROVIDERS: Emergency Provider Emergency Medicine
DX: R07.9 Chest pain, unspecified (principal)
CPT/HCPCS: 71045; 71275; 80053; 81001; 84484; 85025; 85378; 86140; 93005; 96374; 99285; J1885; Q9967